=== PATIENT | female | born 2000 | race African-American/Black ===

== ENCOUNTER 2020-02-16 16:18 | Emergency (ER) | payer OTHER ==
[~2020-02-16] VITALS: Ht 182.9 cm; Wt 68.1 kg
[2020-02-16] MEDS ORDERED: IV NORMAL SALINE 1000ML BAG 1,000 ML IV ONE (17:00)
[2020-02-16 17:11] LABS: BILIRUBIN,URINE NEGATIVE (NEG); CLARITY,URINE CLEAR; COLOR,URINE YELLOW; NITRITE,URINE NEGATIVE (NEG); PROTEIN,URINE NEGATIVE (NEG-TRACE); UROBILINOGEN,URINE 0.2 mg/dL (0.2 mg/dL)
[2020-02-16 17:19] LABS: SQUAMOUS EPITHELIAL CELL,UR MANY /LPF
[2020-02-16 17:20] LABS: BACTERIA,URINE FEW /HPF (0-FEW); RBC,URINE TNTC /HPF (0-2)
[2020-02-16] MEDS ORDERED: ONDA4TAB12 PO (17:29)
[2020-02-16] MEDS ORDERED: FAMO-63 PO (17:29)
--- NOTE | 2020-02-16 17:29 | PHYS DOC ---
Past Medical History Past Medical History: GERD Past Surgical History: No Surgical History Smoking Status: Never Smoker Alcohol Use: None Drug Use: Marijuana General Adult EDM: Chief Complaint: NAUSEA/VOMITING/DIARRHA HPI: HPI: Patient is a 19 year old female presents with 2-week history of nausea, vomiting, and diarrhea. Patient does report some abdominal cramping. Denies known sick contacts. Denies fever or chills. Denies trauma. Denies . 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 Current Medications: Current Medications Medications (Trade) Dose Ordered Sig/Tj Start Time Stop Time Status Last Admin Dose Admin Famotidine (Pepcid Vial) 20 mg 1X ONCE 02/16/20 17:30 02/16/20 16:57 DC Ketorolac Tromethamine (Toradol 15mg Vial) 15 mg 1X ONCE 02/16/20 17:30 02/16/20 16:57 DC Ondansetron HCl (Zofran Odt) 4 mg 1X ONCE 02/16/20 17:30 02/16/20 17:31 Ondansetron HCl (Zofran) 4 mg 1X ONCE 02/16/20 17:30 02/16/20 16:57 DC Sodium Chloride 1,000 ml @ 1,000 mls/hr 1X ONCE 02/16/20 17:00 02/16/20 16:57 DC Allergies: Allergies: Allergies Coded Allergies Type Severity Reaction Last Updated Verified No Known Drug Allergies 02/16/20 No Physical Exam: PE: Constitutional: Well developed, well nourished, no acute distress, non-toxic appearance HENT: Normocephalic, atraumatic Eyes: Conjunctiva normal, no discharge Neck: Normal range of motion, no tenderness, supple Lungs & Thorax: No respiratory distress, equal chest rise and fall Abdomen: Soft, no tenderness, no guarding/rebound tenderness/distention Skin: Warm, dry, no erythema, no rash Back: No tenderness, no CVA tenderness Extremities: No tenderness, ROM intact, no edema Neurologic: Alert and oriented X 3, no focal deficits noted Psychologic: Affect normal, judgment normal Current Patient Data: Labs: Laboratory Tests Test 02/16/20 16:55 02/16/20 17:04 Urine Collection Type Unknown Urine Color Yellow Urine Clarity Clear Urine pH 7.0 (<5.0-8.0) Urine Specific Bryan <=1.005 (1.000-1.030) Urine Protein Negative mg/dL (NEG-TRACE) Urine Glucose (UA) Negative mg/dL (NEG) Urine Ketones (Stick) Negative mg/dL (NEG) Urine Blood Large (NEG) Urine Nitrite Negative (NEG) Urine Bilirubin Negative (NEG) Urine Urobilinogen Dipstick 0.2 mg/dL (0.2 mg/dL) Urine Leukocyte Esterase Moderate (NEG) Urine RBC Tntc /HPF (0-2) Urine WBC 11-20 /HPF (0-4) Urine Squamous Epithelial Cells Many /LPF Urine Bacteria Few /HPF (0-FEW) POC Urine HCG, Qualitative Hcg negative (Negative) Vital Signs: Vital Signs Date Time Temp Pulse Resp B/P (MAP) Pulse Ox O2 Delivery O2 Flow Rate FiO2 02/16/20 16:35 98.4 75 16 118/58 (78) 99 Room Air 98.4 EKG: EKG: [] Radiology/Procedures: Radiology/Procedures: [] Course & Med Decision Making: Course & Med Decision Making Pertinent Lab studies reviewed. (See chart for details) Patient presents with 2-week history of nausea/vomiting/diarrhea. Abdomen non- peritoneal. Afebrile. Symptomatic treatment provided including IV fluid hydration. Labs obtained and posted to chart. Patient stable for discharge with outpatient follow-up with PCP. Discussed findings and plan with patient, who acknowledges understanding and agreement. Angela Disclaimer: Angela Disclaimer: This electronic medical record was generated, in whole or in part, using a voice recognition dictation system. Departure Departure Impression: Primary Impression: Nausea vomiting and diarrhea Disposition: HOME, SELF-CARE Condition: STABLE Referrals: NO PCP (PCP) Patient Instructions: Clear Liquid Diet, [id number], Diarrhea, Masw-[id number], Diet for Diarrhea, Adult, Nausea and Vomiting, [id number] Scripts Famotidine (PEPCID) 20 Mg Tablet 20 MG PO BID, #10 TAB Prov: KATHY BAUER DO 02/16/20 Ondansetron (ONDANSETRON ODT) 4 Mg Tab.rapdis 1 TAB PO PRN Q6-8HRS PRN for VOMITING, #16 TAB Prov: KATHY BAUER DO 02/16/20 Justicifation of Admission Dx: Justifications for Admission: Justification of Admission Dx: N/A KATHY BAUER DO Feb 16, 2020 17:29
[2020-02-16] MEDS ORDERED: KETOROLAC 15 MG/ML VIAL. IVP ONE (17:30)
[2020-02-16] MEDS ORDERED: FAMOTIDINE 20 MG/2 ML VIAL IVP ONE (17:30)
[2020-02-16] MEDS ORDERED: ONDANSETRON ODT 4 MG TAB.RAPDIS. PO ONE (17:30)
[2020-02-16] MEDS ORDERED: ONDANSETRON PF 4 MG/2 ML VIAL. IVP ONE (17:30)
[2020-02-16 17:35] VITALS: BP 123/60
[2020-02-16] MEDS ORDERED: CEPHALEXIN 250 MG CAPSULE. PO ONE (18:00)
== END 2020-02-16 17:40 | disposition home or self-care (01) ==
LOC: ER 16:18
DX: R11.2 Nausea with vomiting, unspecified (principal); R19.7 Diarrhea, unspecified; K21.9 Gastro-esophageal reflux disease without esophagitis
CPT/HCPCS: 81001; 81025; 87086; 99283